=== PATIENT | female | born 1950 | race Caucasian/White ===

== ENCOUNTER 2017-12-07 11:30 | Day surgery (SDC) | payer OTHER ==
[2017-12-04 19:34] VITALS: BMI 24.5
[2017-12-07] MEDS ORDERED: PROPOFOL 20 ML ONE (12:44)
[2017-12-07] MEDS ORDERED: MIDAZOLAM HCL 2 MG/2 ML SINGLE DOSE VIAL ONE (12:44)
[2017-12-07] MEDS ORDERED: ceFAZolin SODIUM 1 GM VIAL ONE (12:52)
[2017-12-07] MEDS ORDERED: ceFAZolin SODIUM 1 GM VIAL IVPB ONE (13:06)
[2017-12-07] MEDS ORDERED: DEXAMETHASONE SOD PHOSPHATE 4 MG/1 ML VIAL ONE (13:18)
[2017-12-07] MEDS ORDERED: ePHEDrine SULFATE 50 MG/1 ML AMPULE ONE (13:22)
--- NOTE | 2017-12-07 14:27 | OP ---
Operative Note - Note: Operative Date: 12/07/17 Pre-Operative Diagnosis: Left Ureteral calculus Left hydro nephrosis Operation: Cysto Left ureteroscopy laser litho stenting Post-Operative Diagnosis: Same as Pre-op Surgeon: Kimani Liang Anesthesia: General Drains & Tubes with Location: 23 F 6mm stent
[2017-12-07] MEDS ORDERED: ONDANSETRON 4 MG/2 ML VIAL IVPUSH PRN (14:38)
[2017-12-07] MEDS ORDERED: oxyCODONE HCL 5 MG TABLET PO PRN (14:38)
[2017-12-07] MEDS ORDERED: ACETAMINOPHEN 325 MG TABLET (FP) PO PRN (14:38)
[2017-12-07] MEDS ORDERED: LACTATED RINGERS SOLUTION 1,000 ML IV SCH (14:45)
[2017-12-07 15:34] VITALS: TEMP 98.5
[2017-12-07 16:52] VITALS: BP 110/65; PULSE 76
--- NOTE | 2017-12-07 19:22 | OP ---
DATE OF OPERATION: 12/07/2017 SURGEON: Kimani Liang MD ANESTHESIA: General. PREOPERATIVE DIAGNOSIS: Left hydronephrosis, left ureteral calculus. POSTOPERATIVE DIAGNOSIS: Left hydronephrosis, left ureteral calculus, indwelling stent. PROCEDURE: Removal of the old stent, ureteroscopy, laser lithotripsy, stent placement. FINDINGS: The stone was embedded in the left ureter a few cm up from the ureteral junction. Stone was in the wall of the ureter, which made it very difficult to use the laser for few of perforation. The stone could not be dislodged from this hole, and there was tremendous edema. Ureter was found to be kind of shredded way. DESCRIPTION OF PROCEDURE: Patient in lithotomy position under anesthesia was prepped and draped in the usual manner. Using a 22 scope, cystoscopy performed. Previously placed stent was removed. Using that stent, guidewire was placed in the kidney. Then ureteroscopy was performed and the stone was noted and found to be totally embedded in the mid ureter. It was decided not to use the laser for few of perforation. The stent was replaced to allow for a few weeks for the ureter to heal before we will attempt to remove the stone. The patient tolerated the procedure well and left the operating room in satisfactory condition. Bert PRINCE/[id number]
--- NOTE | 2017-12-09 13:06 | PATH ---
Surgical Pathology Report Patient Name: [facility]. Rec. #: [id number] /Age/Gender: 1950 (Age: 67) / F Account: [id number] Location: [facility] SURGICAL Taken: 12/07/2017 Received: 12/08/2017 Reported: 12/09/2017 Physicians: Kimani Liang M.D. Specimen(s) Received LEFT URETERAL STENT Clinical History Left renal calculus/left hydronephrosis Final Diagnosis URETERAL STENT, LEFT, REMOVAL: URETERAL STENT. MACROSCOPIC DIAGNOSIS. Electronically Signed Peggy Choi M.D. Gross Description Received fresh labeled "left ureteral stent," is a 32 cm in length blue-green, coiled portion of tubing, consistent with a ureteral stent. No soft tissue is present. No sections are submitted, gross only. /12/08/2017 saudi12/08/2017
== END 2017-12-07 17:00 | disposition home or self-care (01) ==
LOC: JASU-SURG 11:30
PROVIDERS: ATTEND Urology
PROC: 0TF78ZZ Fragmentation in Left Ureter, Via Natural or Artificial Opening Endoscopic (ICD-10-PCS; principal; 2017-12-07 13:00)
PROC: 0T778DZ Dilation of Left Ureter with Intraluminal Device, Via Natural or Artificial Opening Endoscopic (ICD-10-PCS; 2017-12-07 13:00)
DX: N13.2 Hydronephrosis with renal and ureteral calculous obstruction (principal)
CPT/HCPCS: 76000-TC-FY; 88300-TC; 94760

== ENCOUNTER 2019-02-27 09:20 | Emergency (ER) | payer OTHER ==
[2019-02-27 09:32] VITALS: BMI 25.2
[2019-02-27 10:37] LABS: BASO % 0.6 % (0-2.0); EOS % 1.4 % (0-4.5); HEMATOCRIT 42.3 % (32.4-45.2); HEMOGLOBIN 14.5 GM/dL (10.7-15.3); LYMPH % 28.7 % (8-40); MCH 30.9 pg (25.7-33.7); MCHC 34.2 g/dl (32.0-36.0); MEAN CELL VOLUME 90.3 fl (80-96); MONO % 6.8 % (3.8-10.2); NEUT % 62.5 % (42.8-82.8); PLATELET COUNT 258 K/MM3 (134-434); RBC 4.69 M/mm3 (3.60-5.2); RDW 13.5 % (11.6-15.6); WHITE BLOOD COUNT 6.7 K/mm3 (4.0-10.0)
[2019-02-27 10:53] LABS: ALBUMIN 4.4 g/dl (3.4-5.0); BILIRUBIN,TOTAL 0.6 mg/dL (0.2-1); BLOOD UREA NITROGEN 16.7 mg/dL (7-18); CALCIUM 9.6 mg/dL (8.5-10.1); CREATININE 0.9 mg/dL (0.55-1.3); TOT PROT 7.8 g/dl (6.4-8.2)
[2019-02-27 10:57] LABS: URINE APPEARANCE CLEAR; URINE BILIRUBIN NEGATIVE (NEGATIVE); URINE COLOR YELLOW; URINE GLUCOSE (UA) NEGATIVE (NEGATIVE); URINE KETONE NEGATIVE (NEGATIVE); URINE LEUK ESTERASE NEGATIVE (NEGATIVE); URINE NITRITE NEGATIVE (NEGATIVE); URINE PROTEIN NEGATIVE (NEGATIVE); URINE UROBILINOGEN 0.2 mg/dL (0.2-1.0)
--- NOTE | 2019-02-27 11:06 | PDOC ---
History of Present Illness - General Chief Complaint: Pain Stated Complaint: ABD PAIN Time Seen by Provider: 02/27/19 10:08 History Source: Patient Exam Limitations: No Limitations - History of Present Illness Travel History: No Initial Comments: 02/27/19 11:18 39-year-old female presents to ED with complaints of intermittent right lower abdominal cramping worsened in the a.m. hours lasting for about 2 hours and resolves with rest. Patient states if she tries to walk she develops a cramping sensation to the area. Patient denies abdominal distention, bowel complaints, fever, chills, nausea or urinary complaints. Patient does state history of renal colic with lithotripsy and stent placement earlier this year by Dr. garcia. Patient also states recent diagnosis of uterine fibroids which she does state has discomfort to the area. Patient also states pain is similar after having sexual intercourse which she was experienced frequently last year but has not had intercourse recently to experience this pain. Timing/Duration: reports: intermittent Quality: reports: moderate, cramping Abdominal Pain Onset Location: reports: RLQ, suprapubic Pain Radiation: reports: no radiation Activities at Onset: reports: none Aggravating Factors: improves with: Movement Alleviating Factors: improves with: Rest Past History - Travel Traveled outside of the country in the last 30 days: No - Past Medical History Allergies/Adverse Reactions: Allergies Allergy/AdvReac Type Severity Reaction Status Date / Time No Known Allergies Allergy Verified 02/27/19 09:32 Home Medications: Ambulatory Orders Amlodipine Besylate [Norvasc -] 5 mg PO HS 11/27/17 Atenolol [Tenormin -] 50 mg PO DAILY 11/27/17 Oxycodone HCl/Acetaminophen [Percocet 5-325 mg Tablet] 1 tab PO Q4H PRN Nitrofurantoin Monohyd/M-Cryst [Macrobid -] 100 mg PO BID 12/04/17 Levofloxacin [Levaquin] 500 mg PO DAILY #10 tablet 12/07/17 Oxycodone HCl/Acetaminophen [Percocet 5/325] 1 combo PO Q4HWA #20 tablet MDD 4 12/07/17 Anemia: No Asthma: No Cancer: No Cardiac Disorders: No CVA: No COPD: No CHF: No Dementia: No Diabetes: No GI Disorders: No Disorders: Yes (kidney stones left 11/2017) HTN: Yes Hypercholesterolemia: No Liver Disease: No Seizures: No Thyroid Disease: No - Surgical History Abdominal Surgery: No Appendectomy: No Cardiac Surgery: No Cholecystectomy: No Lung Surgery: No Neurologic Surgery: No Orthopedic Surgery: No - Psycho Social/Smoking Cessation Hx Smoking History: Never smoked Hx Alcohol Use: No Drug/Substance Use Hx: No Substance Use Type: None Hx Substance Use Treatment: No Patient Lives Alone: No Lives with/in: spouse/SO Review of Systems - Review of Systems Able to Perform ROS?: Yes Constitutional: No: Symptoms Reported HEENTM: No: Symptoms Reported Respiratory: No: Symptoms reported Cardiac (ROS): No: Symptoms Reported ABD/GI: Yes: Abdominal cramping : No: Symptoms Reported Musculoskeletal: No: Symptoms Reported Integumentary: No: Symptoms Reported Neurological: No: Symptoms reported Hematologic/Lymphatic: No: Symptoms Reported *Physical Exam - Vital Signs Last Vital Signs Temp Pulse Resp BP Pulse Ox 98.0 F 67 17 153/92 97 02/27/19 09:44 02/27/19 09:44 02/27/19 09:44 02/27/19 09:44 02/27/19 09:44 - Physical Exam General Appearance: Yes: Nourished, Appropriately Dressed. No: Apparent Distress HEENT: negative: Pale Conjunctivae Respiratory/Chest: positive: Lungs Clear, Normal Breath Sounds. negative: Respiratory Distress Cardiovascular: positive: Regular Rhythm, Regular Rate. negative: Murmur Female Pelvic Exam: negative: discharge, vaginal bleeding Gastrointestinal/Abdominal: positive: Normal Bowel Sounds, Soft, Tenderness (rt suprapubic/rlq, - mcburneys, ). negative: Distended, Guarding, Rebound Integumentary: positive: Normal Color, Warm, Moist Neurologic: positive: Motor Strength 5/5 (ambulatory) ED Treatment Course - LABORATORY CBC & Chemistry Diagram: 02/27/19 10:20 02/27/19 10:20 - ADDITIONAL ORDERS Additional order review: 02/27/19 10:20 RBC 4.69 MCV 90.3 MCHC 34.2 RDW 13.5 MPV 10.0 Neutrophils % 62.5 Lymphocytes % 28.7 Monocytes % 6.8 Eosinophils % 1.4 Basophils % 0.6 Medical Decision Making - Medical Decision Making 02/27/19 10:27 Chief complaint: Intermittent right suprapubic right lower quadrant pain worsened in a.m. hours which she describes as sharp pain worsened with movement and normally resolves within hours. No other complaints including urinary bowel changes. patient also denies nausea, fever or chills Exam: Patient with right suprapubic and right lower quadrant tenderness no CVA tenderness vital signs stable. Plan: Urine urine culture, labs and will consider imaging 02/27/19 12:27 Laboratory Tests 02/27/19 02/27/19 02/27/19 10:20 10:20 10:20 WBC 6.7 Hgb 14.5 Hct 42.3 Absolute Neuts (auto) 4.2 Sodium 139 Potassium 4.0 Chloride 106 Carbon Dioxide 30 Anion Gap 4 L BUN 16.7 Creatinine 0.9 Random Glucose 91 Calcium 9.6 Total Bilirubin 0.6 AST 26 ALT 28 Alkaline Phosphatase 94 Total Protein 7.8 Albumin 4.4 Urine Glucose (UA) Negative Urine Ketones Negative Urine Nitrite Negative Urine Bilirubin Negative Ur Leukocyte Esterase Negative Selected Entries 02/27/19 12:27 Temperature 98.4 F Pulse Rate [ 65 Apical] Respiratory 19 Rate Blood Pressure 158/70 [Left Arm] O2 Sat by Pulse 100 Oximetry (%) Ultrasound shows echogenic fundal intramural myoma measuring 1.6 x 1.6 x 2 cm. Another intramural myoma measuring 1.4 x 0.9 x 1.4 cm. 1 of the myomas appears slightly larger than noted 1 month ago. Therefore consider an MRI for better characterization. Patient states will follow-up with her [employer] Dr. paz. patient is currently asymptomatic. 02/27/19 12:32 Discharge - Discharge Information Problems reviewed: No Clinical Impression/Diagnosis: Fibroids Condition: Good Disposition: HOME - Follow up/Referral - Patient Discharge Instructions Patient Printed Discharge Instructions: DI for Uterine Fibroids Additional Instructions: Please follow-up with your [employer] BUSINESS REPRESENTATIVE in regards to your ultrasound findings. May take Tylenol for discomfort or use a heating pad to the affected area. If your symptoms worsen despite the above recommendations please return to the ED sooner as at this time they are recommending an MRI. - Post Discharge Activity
[2019-02-27 12:27] VITALS: BP 158/70; PULSE 65; TEMP 98.4
== END 2019-02-27 12:40 | disposition home or self-care (01) ==
LOC: JER 09:20
DX: D25.9 Leiomyoma of uterus, unspecified (principal); I10 Essential (primary) hypertension; Z87.442 Personal history of urinary calculi
CPT/HCPCS: 36415; 76830-TC; 80053; 81003; 85025; 87086; 99282-25